=== PATIENT | female | born 2000 | race Caucasian/White ===

== ENCOUNTER 2022-04-17 12:22 | Emergency (ER) | payer OTHER, SELFPAY ==
[2022-04-17 12:23] VITALS: BP 115/71; PULSE 67; RESP 15; TEMP 36.8; O2SAT 99; BMI 21.4
--- NOTE | 2022-04-17 12:32 | EKG12_ITS ---
Test Reason : SYNCOPE Blood Pressure : / mmHG Vent. Rate : 067 BPM Atrial Rate : 067 BPM P-R Int : 120 ms QRS Dur : 074 ms QT Int : 378 ms P-R-T Axes : 066 082 048 degrees QTc Int : 399 ms Normal sinus rhythm with sinus arrhythmia Normal ECG Confirmed by PETE MESA, KADEN ([id number]), brands editor TORSTEN VALENCIA ([id number]) on 04/20/2022 9:43:55 AM Referred By: GABRIELA Confirmed By:KADEN FREEMAN MD
--- NOTE | 2022-04-17 12:32 | EX.ED.DYSGE1 ---
HPI History of Present Illness Chief Complaint: Syncope Informant: patient Narrative Narrative: Presents with friend for evaluation syncopal episode occurring hour prior to arrival. Walking in the bathroom severe pain lower pelvis with prodromal lightheaded symptoms and then up on the floor. No chest pains or shortness of breath. Last menstrual period 3 weeks ago. Denies any chance of . No urinary symptoms. No recent vomiting diarrhea. Siblings history ovarian cyst she has not been diagnosed with any. She has had menstrual cramping however not as severe previously. Denies any past medical history. Denies any allergies. Denies any abnormal vaginal discharge or bleeding. Prior similar symptoms: No PFSH PFSH Allergy/AdvReac Type Severity Reaction Status Date / Time No Known Allergies Allergy Verified 04/17/22 12:25 Social History Smoking Status: Never smoker ROS ROS ED Constitutional Constitutional ED: Denies chills, fever(s) or sweats Eyes Eyes: Denies change in vision ENT ENT ED: Denies dysphagia or sore throat Cardiovascular Cardiovascular: Reports other Details: Syncope ; Denies chest pain, leg edema, palpitations or racing heartbeat Respiratory/Chest Respiratory/Chest: Denies cough, dyspnea or dyspnea on exertion Gastrointestinal Gastrointestinal: Denies abdominal pain, diarrhea, nausea or vomiting Genitourinary Genitourinary ED: Reports other Details: pelvic pain ; Denies dysuria, hematuria or urinary frequency Musculoskeletal Musculoskeletal: Denies back pain, extremity pain or neck pain Integumentary Denies rash or wounds Neurologic Neurologic: Denies headache(s), paresthesias or weakness EXAM Physical Exam Const Vital Signs: 04/17/22 12:23 04/17/22 12:36 Temperature 98.2 F Temperature Source Temporal Pulse Rate 67 Respiratory Rate 15 Respiratory Pattern Normal Blood Pressure 115/71 Blood Pressure Mean 85 Pulse Ox 99 Oxygen Delivery Method Room Air Positive well nourished and well developed General Appearance ED: well developed and NAD HEENT Reports moist mucous membranes normocephalic and atraumatic Eyes PERRL, EOMs intact bilaterally and conjunctivae normal General Eye ED: Yes normal appearance of both eyes Neck no lymphadenopathy and supple General: Negative for tenderness Chest Wall Chest: Negative for tenderness Resp normal respiratory effort and normal air movement Effort and Inspection: symmetric chest movement; Negative for respiratory distress Cardio regular rate, regular rhythm and no murmurs Peripheral Pulses: pulses 2+ throughout GI normal to inspection, nondistended, normoactive bowel sounds and non-tender Palpation: Negative for guarding or rebound tenderness present Narrative: Tender palpation left pelvis Back/Spine no CVA tenderness and no thoracic nor lumbar tenderness Extremity normal to inspection General Extremety ED: Negative for edema or tenderness General Extremity: Negative for edema Neuro oriented x3 and no sensory deficits noted Sensorium / Orientation: awake and alert Skin no rashes or lesions noted and no wounds MDM MDM MDM Narrative Medical decision making narrative: Patient syncope after pain likely vasovagal EKG is normal. Labs normal white count hemoglobin 12.3 creatinine 0.74. Urine negative. hCG was negative. She is tender in the pelvis on exam no vaginal bleeding ultrasound obtained notes ruptured 4 cm cyst on the right side. Moderate mount of free fluid. Reported possibility of abscess as a differential however sudden onset of symptoms normal white count no fevers not likely infectious. Negative therefore not ectopic . She has NSAIDs at home to use. She is given on-call gynecology for follow-up. Return precautions. All questions were answered. Lab Data Attestation: I reviewed the patient's lab results. Labs: Laboratory Results - last 24 hr 04/17/22 04/17/22 04/17/22 12:41 12:48 12:48 WBC 9.9 RBC 4.13 L Hgb 12.3 Hct 38.1 MCV 92.3 MCH 29.8 MCHC 32.3 RDW Std Deviation 41.2 RDW Coeff of Ej 12.3 Plt Count 257 MPV 8.6 Immature Gran % (Auto) 0.400 Neut % (Auto) 73.0 H Lymph % (Auto) 16.8 L Whitley % (Auto) 6.9 Eos % (Auto) 2.3 Baso % (Auto) 0.6 Absolute Neuts (auto) 7.2 Absolute Lymphs (auto) 1.66 Nucleated RBC % 0 Sodium 139 Potassium 4.3 Chloride 107 Carbon Dioxide 26.0 Anion Gap 6 BUN 10 Creatinine 0.74 Estim Creat Clear Calc 87.83 Est GFR (MDRD) Af Amer 129 Est GFR (MDRD) Non-Af 106 BUN/Creatinine Ratio 13.4 Glucose 102 Calcium 9.0 Urine Color Yellow Urine Clarity Sl. Cloudy Urine pH 7.0 Ur Specific [place] 1.010 Urine Protein Negative Urine Glucose (UA) Normal Urine Ketones Negative Urine Occult Blood 10 H Urine Nitrite Negative Urine Bilirubin Negative Urine Urobilinogen Normal Ur Leukocyte Esterase Negative Urine RBC 0 SEEN Urine WBC 0 SEEN Ur Squamous Epith Cells 0 SEEN Urine Bacteria 0 SEEN Urine Mucus 0 SEEN Urine Test Negative Radiography Diagnostic Testing: Clinical Impression(s) from Imaging Studies Transvaginal US 04/17/22 13:03 IMPRESSION: Suspect a 4 cm ruptured corpus luteum cyst of the right ovary with a moderate amount of free fluid. Other possibilities include tubo-ovarian abscess or ectopic and clinical correlation is recommended. Electronically Signed: Adrian Haro MD at 14:14 EDT , EKG Initial EKG: Attestation: I personally reviewed and interpreted this EKG as follows: Comments: Sinus rate of 67, no ST or T wave changes QTC 399. Discharge Plan Triage Chief Complaint: Syncope ED Provider: Morteza Pearson Dx/Rx/DC Orders Clinical Impression: Rupture of cyst of right ovary, Syncope, vasovagal, Pelvic pain Instructions: Understanding Ovarian Cysts, Treatment for Ovarian Cysts, ED Fainting, Vagal Reaction Primary Care Provider: Ruby Prince,Out of Referrals: Cara Matthews MD [Med Staff - Active Staff] - 1 Week [facility] Doctor,Out of [Primary Care Provider] - Activity Restrictions/Additional Instructions: 4 cm right ovarian cyst ruptured. Tylenol or Motrin as needed. Follow-up with [facility]. Return if any worsening symptoms. Disposition Disposition: Home, Self Care Discharge Date/Time: 04/17/22 14:51
[2022-04-17 12:44] LABS: Bacteria 0 SEEN /hpf (None Seen); Mucous, Urine 0 SEEN /hpf (<or=2+); Red Blood Cells-Urine 0 SEEN /hpf (0-5); Squamous Epithelial Cells - UA 0 SEEN /hpf (5-10); White Blood Cells 0 SEEN /hpf (0-5)
--- NOTE | 2022-04-17 12:45 | NURSING ---
NO OLD EKGS
[2022-04-17 12:46] LABS: Color, Urine Yellow (Yellow); Glucose, Dipstick Normal (Normal); Ketone-Dipstick Negative (Negative); Leukocyte Esterase-Dipstick Negative /ul (Negative); Nitrite-Dipstick Negative (Negative); Occult Blood-Urine 10 /ul (Negative); Protein-Dipstick Negative (Negative); Urine Bilirubin Dipstick Negative (Negative); Urine Clarity Sl. Cloudy (Clear); Urine Urobilinogen Normal (Normal)
[2022-04-17 12:51] LABS: Internal QC Validated? YES +Cl - CLEAR BKGD; Pregnancy, Urine Negative Negative
[2022-04-17 12:56] LABS: Absolute Lymphocyte Count 1.66 X10^3/uL (0.83-4.51); Absolute Neutrophil Count 7.2 X10^3/uL (2.0-7.7); Basophil# 0.06 X10^3/uL; Basophil% 0.6 % (0-1); Eosinophil# 0.23 X10^3/uL; Eosinophils% 2.3 % (0-5); Hematocrit 38.1 % (37-47); Hemoglobin 12.3 g/dL (12.0-15.0); Lymphocyte # 1.66 X10^3/ul (0.83-4.51); Lymphocyte % 16.8 % (19-41); Mean Corp Hgb Conc 32.3 g/dL (32-36); Mean Corpuscular Hgb 29.8 pg (27.0-32.0); Mean Corpuscular Volume 92.3 fL (81-99); Mean Platelet Vol. 8.6 fl (6.2-12.0); Monocyte# 0.68 X10^3/uL; Monocyte% 6.9 % (0-10); NRBC Flagged by Analyzer 0 % (0-5); Neutrophil # 7.23 X10^3/uL (2.7-7.7); Platelet Count 257 K/mm3 (150-450); RBC Distribution Width CV 12.3 % (11.6-14.6); RBC Distribution Width SD 41.2 fl (35.1-43.9); Red Blood Count 4.13 M/mm3 (4.2-5.4); White Blood Count 9.9 K/mm3 (4.4-11.0)
--- NOTE | 2022-04-17 13:03 | US_ITS ---
STUDY: ULTRASOUND TRANSVAGINAL CLINICAL: Female, 21 years old. pelvic pain TECHNIQUE: Transvaginal COMPARISON: None. FINDINGS: Normal uterine size measuring 6.7 x 4.5 x 3.3 cm in maximal craniocaudal dimension. There are no myometrial masses. Normal endometrial thickness measuring 8 mm. There are no endometrial masses, and there is no fluid in the endometrial cavity. Normal uterine cervix. Enlarged right ovary, measuring 5.9 x 3.7 x 2.5 cm. 4 cm crenated cystic area within the right ovary which may represent a ruptured corpus luteum cyst.. Normal left ovary, measuring 3.2 x 1.4 x 1.6 cm. There are multiple follicles without a dominant cyst. There is a moderate amount of free fluid in the pelvis. Polycystic ovary disease: No. US/Transvaginal Non- IMPRESSION: Suspect a 4 cm ruptured corpus luteum cyst of the right ovary with a moderate amount of free fluid. Other possibilities include tubo-ovarian abscess or ectopic and clinical correlation is recommended. Electronically Signed: Adrian Haro MD at 14:14 EDT ,
[2022-04-17 13:08] LABS: Anion Gap 6 (5-15); BUN 10 mg/dL (7-18); BUN/Creat Ratio 13.4 RATIO (10-20); Chloride 107 mmol/L (98-107); Creatinine, Serum 0.74 mg/dL (0.55-1.02); EST Glomerular Filtration Rate 106 mL/min (>60); Est Glom Filt Rate - Afr Amer 129 mL/min (>60); Estimated Creatinine Clearance 87.83 ml/min; Glucose 102 mg/dL (74-106); Potassium 4.3 mmol/L (3.5-5.1); Sodium Level 139 mmol/L (136-145)
== END 2022-04-17 14:51 | disposition home or self-care (01) ==
PROVIDERS: Emergency Provider Emergency Medicine; Visit Provider Emergency Medicine
DX: R55 Syncope and collapse (principal); N83.201 Unspecified ovarian cyst, right side; R10.2 Pelvic and perineal pain
CPT/HCPCS: 76830; 80048; 81001; 81025; 85025; 93005; 93976; 99284; A4216

== ENCOUNTER 2024-04-12 13:10 | Emergency (ER) | payer OTHER, SELFPAY ==
[2024-04-12 13:11] VITALS: BP 107/73; PULSE 68; RESP 16; TEMP 36.7; O2SAT 99; BMI 23.5
--- NOTE | 2024-04-12 15:04 | EX.ED.DYSGE1 ---
HPI History of Present Illness Chief Complaint: Other, Pain/Inj Informant: patient Narrative Narrative: 23-year-old female presenting to the emergency room with left jaw swelling. Patient states she went to urgent cares and was referred here for further evaluation. Patient states that she noticed a swollen lymph node in the front of her left ear about 3 to 4 days ago. Its progressively gotten larger. She denies any dry mouth any fever any recent URI symptoms. No ear pain. No vision changes. No headache no rash. She is vaccinated including MMR. She has never had this before. She denies any dental pain. PFSH PFSH Medical History no medical history no medical history Home Medications ?Medication ?Instructions ?Recorded ?Last Taken ?Type amoxicillin 875 mg-potassium 875 mg PO Q12H #14 TABLETS 04/12/24 Unknown Rx clavulanate 125 mg tablet Allergy/AdvReac Type Severity Reaction Status Date / Time No Known Allergies Allergy Verified 04/12/24 13:12 Surgical History no surgical history no surgical history Social History Smoking Status: Never smoker ROS ROS ED Constitutional Constitutional ED: Denies chills, fever(s) or weight loss Eyes Eyes: Denies change in vision or diplopia ENT ENT ED: Reports other Details: See history of present illness ; Denies ear pain, rhinorrhea or sore throat Cardiovascular Cardiovascular: Denies chest pain, orthopnea, palpitations or racing heartbeat Respiratory/Chest Respiratory/Chest: Denies cough, dyspnea or orthopnea Gastrointestinal Gastrointestinal: Denies abdominal pain, diarrhea, nausea or vomiting Genitourinary Genitourinary ED: Denies dysuria, hematuria or urinary frequency Musculoskeletal Musculoskeletal: Denies arthralgias or myalgias Integumentary Denies abscess or rash Neurologic Neurologic: Denies headache(s) or weakness Psychiatric Psychiatric: Denies anxiety, depression, suicidal ideation or suicidal thoughts Endocrine Endocrinology: Denies polydipsia, polyphagia or polyuria Allergic/Immunologic Allergic/Immunologic ED: Denies mouth swelling, tongue swelling or urticaria EXAM Physical Exam Const Vital Signs: 04/12/24 13:11 04/12/24 14:16 04/12/24 15:11 Temperature 98.1 F Temperature Source Oral Pulse Rate 68 78 Respiratory Rate 16 Respiratory Effort Normal Non-Labored Respiratory Pattern Normal Blood Pressure 107/73 120/86 H Blood Pressure Mean 84 97 Pulse Ox 99 98 Oxygen Delivery Method Room Air Room Air 04/12/24 16:39 Temperature 98 F Temperature Source Pulse Rate 78 Respiratory Rate 16 Respiratory Effort Respiratory Pattern Blood Pressure 113/82 H Blood Pressure Mean 92 Pulse Ox 98 Oxygen Delivery Method Positive well nourished and well developed General Appearance ED: well developed HEENT Reports normocephalic, head/scalp atraumatic, TM's clear and moist mucous membranes HEENT Narrative: There is mild swelling over the left parotid gland. There is no overlying erythema. I do not see a swollen Stensen's duct there is no oropharyngeal lesions or obvious abnormalities. Dentition appears normal. No significant lymphadenopathy is felt. Tympanic Membrane ED: Yes TM's clear Eyes PERRL and EOMs intact bilaterally Neck no lymphadenopathy, supple and no JVD Resp normal respiratory effort and clear to auscultation bilaterally Cardio regular rate, regular rhythm and no murmurs GI normal to inspection, nondistended, normoactive bowel sounds and non-tender Palpation: soft Back/Spine no CVA tenderness and normal ROM Extremity normal to inspection General Extremety ED: Negative for edema General Extremity: Negative for edema Neuro oriented x3 and CN's II-XII intact bilaterally Sensorium / Orientation: alert Motor Exam: strength 5/5 throughout Psych mental status grossly normal Mood & Affect: Negative for depressed or tearful Skin no rashes or lesions noted and no wounds MDM MDM MDM Narrative Medical decision making narrative: Differential diagnosis includes but not limited to infectious parotitis (viral and bacterial fungal) salivary stone ductal obstruction CT of the neck with IV contrast shows enlargement and enhancement of the left parotid gland. No obvious stone is seen. Please see radiology read for full details. Unguinal have the patient discharged home if she clinically appears well. I have her use some sour candy and placed her on Augmentin. I will have her follow-up with ENT. History & Record Review Discussion w/independent historian: Patient Radiography Diagnostic Testing: Clinical Impression(s) from Imaging Studies Soft Tissue Neck CT 04/12/24 15:27 IMPRESSION: Asymmetric enlargement and enhancement of the left parotid gland consistent with nonspecific parotiditis. Electronically Signed: Dev Hartman MD at 15:55 EDT , Discharge Plan Triage Chief Complaint: Other, Pain/Inj ED Provider: Rojas Barrios Dx/Rx/DC Orders Clinical Impression: Acute parotitis Instructions: ED Salivary Gland Swelling UKO Prescriptions: New amoxicillin-pot clavulanate 875-125 mg tablet 875 mg PO Q12H Qty: 14 0RF Primary Care Provider: Care Physician,No Primary Referrals: Srinivas Alejandra MD [Med Staff - Active Staff] - NOT,DEFINED [Non-Staff] - Print Language: Serbian Disposition Disposition: Home, Self Care Discharge Date/Time: 04/12/24 16:42
[2024-04-12 15:11] VITALS: BP 120/86; PULSE 78; O2SAT 98
--- NOTE | 2024-04-12 15:27 | CT_ITS ---
STUDY: CT SOFT TISSUE NECK WITH CONTRAST REASON FOR EXAM: Female, 23 years old. left parotitis RADIATION DOSAGE (If Supplied By Facility): CTDIvol = ( 9.31 ) mGy, DLP = ( 255.76 ) mGycm TECHNIQUE: The patient was scanned in a multi-detector CT scanner. High resolution transaxial imaging was performed following intravenous administration of IV 75mL [id number]-300. Sagittal and coronal images were reconstructed. Individualized dose optimization techniques were used for this CT. COMPARISON: None. FINDINGS: The left parotid gland is enlarged and shows diffuse enhancement relative to the right. It measures 5.2 cm top to bottom versus 4.5 cm on the right. There is mild induration of the overlying subcutaneous tissues and minimal thickening of the platysma. Findings are consistent with nonspecific asymmetric inflammatory process involving the left parotid gland. No focal fluid collection or evidence for abscess. No evidence for sialolith. Normal bilateral [place] spaces. Normal bilateral parapharyngeal spaces. Normal bilateral carotid spaces. Normal bilateral sublingual and submandibular glands and spaces. Normal visualized nasopharynx. Normal retropharyngeal space. Normal perivertebral space. Normal visualized bilateral faucial tonsils. The visualized tongue, tongue base and oropharynx are normal. The visualized cervical lymph nodes (levels I-) are within normal size limits, and maintain normal morphology. There is no demonstrated solid or cystic mass lesion. There is no abnormal contrast enhancement. Normal epiglottis, bilateral vallecula and hypopharynx. The pre-epiglottic and paraglottic adipose spaces are normal. Normal visualized bilateral piriform sinuses, aryepiglottic folds, vocal cords, and arytenoid-cricoid articulations. Normal subglottic trachea. Normal bilateral lobes of the thyroid gland. Normal visualized pulmonary apices. Normal visualized paranasal sinuses. Normal visualized cervical spine. CT/Soft Tissue Neck WITH Contrast IMPRESSION: Asymmetric enlargement and enhancement of the left parotid gland consistent with nonspecific parotiditis. Electronically Signed: Dev Hartman MD at 15:55 EDT ,
[2024-04-12 16:39] VITALS: BP 113/82; PULSE 78; RESP 16; TEMP 36.6; O2SAT 98
== END 2024-04-12 16:42 | disposition home or self-care (01) ==
PROVIDERS: Emergency Provider Emergency Medicine; Visit Provider Emergency Medicine
DX: K11.20 Sialoadenitis, unspecified (principal)
CPT/HCPCS: 70491; 99283; Q9967; A4216